=== PATIENT | male | born 1970 | race Caucasian/White ===

== ENCOUNTER 2018-07-13 10:38 | Emergency (ER) | payer OTHER, SELFPAY ==
[2018-07-13] VITALS (8 sets, daily range): BP systolic 108–123; BP diastolic 64–79; PULSE 70–97; RESP 13–21; TEMP 36.4–36.9; O2SAT 96–99; BMI 31.2
--- NOTE | 2018-07-13 11:12 | DI.RAD.S_ITS ---
PROCEDURE: XR CHEST 1V INDICATIONS: Chest pain. TECHNIQUE: One view of the chest was acquired. COMPARISON: [facility], , CHEST 1 VIEW, 07/19/2008, 2:20. FINDINGS: Surgical changes and devices: None. Lungs and pleura: No pleural effusions or pneumothorax. Lungs are clear. Mediastinum: Mediastinal contours appear normal. Heart size is normal. Bones and chest wall: No suspicious bony lesions. Overlying soft tissues appear unremarkable. IMPRESSION: No acute cardiopulmonary disease. Dictated by: Fernando Lane M.D. on 07/13/2018 at 11:41 Approved by: Fernando Lane M.D. on 07/13/2018 at 11:43
[2018-07-13 11:21] LABS: Add Manual Diff / Slide Review NO; Basophils Percent Auto 0.8 % (0-2); Eosinophils Percent Auto 1.7 % (2-4); Hemoglobin 16.5 g/dL (13.5-17.5); Lymphocytes Percent Auto 23.4 % (25-40); Mean Corpuscular Hemoglobin 31.7 PG (26-34); Mean Corpuscular Volume 90.4 fL (80-100); Monocytes Percent Auto 7.8 % (3-14); Neutrophils Absolute Auto 3800 /uL (3000-5900); Neutrophils Percent Auto 66.3 % (50-75); Platelet Count 243 X10^3/uL (150-400); Red Cell Distribution Width 13.2 % (11.6-14.8); White Blood Cell Count 5.8 X10^3/uL (4.5-11.0)
[2018-07-13 11:22] LABS: INR 1.1 (0.9-1.3); Prothrombin Time 11.3 SECONDS (10.1-12.7)
--- NOTE | 2018-07-13 11:23 | ED.CHESTPAIN ---
HPI - Chest Pain General Chief Complaint: Chest Pain Stated Complaint: CHEST PAINS Time Seen by Provider: 07/13/18 11:02 Source: patient Mode of arrival: ambulatory Limitations: no limitations History of Present Illness HPI narrative: Patient is a 48-year-old male who presents with left-sided chest pain ongoing for about the last 12 days. It has been constant in nature. It not worse with movement or breathing. It is nonradiating. He denies any shortness of breath or heart palpitations. He was traveling and driving to [place] he only stopped for gas. No history of blood clots no known coronary artery disease. He was at his primary care physician's office today who sent him to the ED for further evaluation. MD complaint: chest pain Related Data Home Medications Medication Instructions Recorded Confirmed ASPIRIN (Aspirin Low Dose) 81 mg PO #0 07/19/08 atorvastatin [Lipitor] #0 04/13/17 hydrochlorothiazide #0 04/13/17 lisinopril #0 04/13/17 omeprazole 40 mg PO QDAY #0 05/10/17 Allergies Allergy/AdvReac Type Severity Reaction Status Date / Time No Known Drug Allergies Allergy Verified 07/13/18 10:54 Review of Systems Review of Systems GENERAL: Denies chills, fatigue, malaise, fever, sweats, travel HEENT: Denies sinus pain, ear pain, sore throat, difficulty swallowing, neck pain RESPIRATORY: Denies dyspnea, cough, wheezing, hemoptysis, sputum. CARDIOVASCULAR: See HPI GASTROINTESTINAL: Denies nausea, vomiting, abdominal pain, diarrhea, constipation, melena. : Denies dysuria, frequency, incontinence, hematuria, urinary retention, flank pain. MUSCULOSKELETAL: Denies weakness, joint pain, or bony pain SKIN: No rash, no erythema, no pruritus NEUROLOGIC: Denies weakness, dizziness, headache, numbness, change in speech, confusion PSYCHIATRIC: No concerning psychosocial issues. 12 point review of systems is negative except for those stated above and HPI [facility] Medical History Hyperlipidemia (Acute) Comment: No family history of coronary artery disease Exam Initial Vital Signs Initial Vital Signs: Vital Signs Temperature 98.5 F 07/13/18 10:54 Pulse Rate 97 H 07/13/18 10:54 Respiratory Rate 18 07/13/18 10:54 Blood Pressure 115/76 07/13/18 10:54 Pulse Oximetry 97 07/13/18 10:54 GENERAL: Well-appearing, well-nourished and in no acute distress. HEENT: Head atraumatic,EOMI, pupils reactive CARDIOVASCULAR: Regular rate and rhythm without murmurs, rubs or gallops. RESPIRATORY: Breath sounds equal bilaterally, no wheezes rales or rhonchi. ABDOMEN: Soft, nontender. Normoactive bowel sounds all 4 quadrants. No guarding or rebound. EXTREMITIES: Normal range of motion, no clubbing or edema. Neurovascularly intact NEUROLOGICAL: Alert and oriented x4.Normal gait and speech. Cranial nerves II through XII grossly intact. SKIN: Warm, dry, no laceration, no petechiae, no rashes or lesions. Scores HEART Score Heart Score history: Slightly Suspicious Heart Score EKG: Normal Heart Score Age: 45-64 years old Heart Score risk factors: 1-2 risk factors Heart Score troponin: < or = to normal limit Heart Score Total: 2 PERC Score Age greater than or equal to 50 years: Yes Heart rate greater than or equal to 100 bpm: No Room Air O2 Sat less than 95%: No Unilateral leg swelling: No Recent trauma or surgery: No Hemoptysis: No Prior PE or DVT: No Hormone Use: No Total PERC Score: 1 Wells' Criteria for PE Clinical signs and symptoms of PE: Yes PE is #1 Dx or equally likely: No Heart rate > 100: No Immobilization at least 3 days or surg in previous 4 weeks: No History of PE or DVT: No Hemoptysis: No Malignancy w/Treatment within 6 months or palliative: No Wells' PE Score total: 3 Course Orders Ordered: Discontinued Medications Aspirin (Aspirin Chew) 324 mg PO NOW ONE Stop: 07/13/18 11:13 Last Admin: 07/13/18 11:26 Dose: 324 mg Sodium Chloride (Normal Saline 0.9%) 1,000 mls @ 150 mls/hr IV CONT UBALDO Sodium Chloride (Normal Saline 0.9%) 1,000 mls @ 150 mls/hr IV CONT UBALDO Ketorolac Tromethamine (Toradol) 30 mg IV NOW ONE Stop: 07/13/18 13:48 Last Admin: 07/13/18 13:48 Dose: 30 mg Nitroglycerin (Nitrostat) 0.4 mg SL NOW ONE Stop: 07/13/18 12:53 Last Admin: 07/13/18 13:00 Dose: 0.4 mg Vital Signs - 8 hr 07/13/18 10:54 Temperature 98.5 F Pulse Rate 97 H Respiratory Rate 18 Blood Pressure 115/76 Pulse Oximetry 97 MDM - Chest Pain Lab Data Attestation: I reviewed the patient's lab results. Result diagrams: 07/13/18 11:00 07/13/18 11:00 Lab Results 07/13/18 07/13/18 07/13/18 Range/Units 11:00 11:00 11:00 WBC 5.8 (4.5-11.0) X10^3/uL RBC 5.20 (4.5-5.9) X10^6/uL Hgb 16.5 (13.5-17.5) g/dL Hct 47.0 (41-53) % MCV 90.4 (80-100) fL MCH 31.7 (26-34) PG MCHC 35.0 (30-36) % RDW 13.2 (11.6-14.8) % Plt Count 243 (150-400) X10^3/uL Neut % (Auto) 66.3 (50-75) % Lymph % (Auto) 23.4 L (25-40) % Gentry % (Auto) 7.8 (3-14) % Eos % (Auto) 1.7 L (2-4) % Baso % (Auto) 0.8 (0-2) % Neut # (Auto) 3800 (9818-4720) /uL PT 11.3 (10.1-12.7) SECONDS INR 1.1 (0.9-1.3) APTT 33 (26.4-36.2) SECONDS D-Dimer (<230) ng/mL Sodium 139 (137-145) mmol/L Potassium 3.8 (3.4-5.1) mmol/L Chloride 101 (98-107) mmol/L Carbon Dioxide 28 (22-32) mmol/L BUN 28 H (9-20) mg/dL Creatinine 0.70 (0.66-1.25) mg/dL Estimated GFR > 60.0 (>60) mL/min BUN/Creatinine Ratio 40.0 H (6-22) Glucose 145 H (70-100) mg/dL Calcium 9.7 (8.4-10.2) mg/dL Total Bilirubin 0.6 (0.2-1.3) mg/dL AST 34 (17-59) IU/L ALT 54 (21-72) IU/L Alkaline Phosphatase 79 (38-126) U/L Total Creatine Kinase 140 (55-170) U/L CK-MB (CK-2) 1.35 (<2.37) ng/mL CK-MB (CK-2) Rel Index 1.0 L (1.5-5.0) % Troponin I < 0.012 (0.01-0.034) ng/mL Total Protein 7.5 (6.3-8.2) g/dL Albumin 4.4 (3.5-5.0) g/dL Globulin 3.1 (1.7-4.1) g/dL Albumin/Globulin Ratio 1.4 (1.0-2.8) Lipase 111 (23-300) U/L 07/13/18 Range/Units 11:00 WBC (4.5-11.0) X10^3/uL RBC (4.5-5.9) X10^6/uL Hgb (13.5-17.5) g/dL Hct (41-53) % MCV (80-100) fL MCH (26-34) PG MCHC (30-36) % RDW (11.6-14.8) % Plt Count (150-400) X10^3/uL Neut % (Auto) (50-75) % Lymph % (Auto) (25-40) % Gentry % (Auto) (3-14) % Eos % (Auto) (2-4) % Baso % (Auto) (0-2) % Neut # (Auto) (9034-3663) /uL PT (10.1-12.7) SECONDS INR (0.9-1.3) APTT (26.4-36.2) SECONDS D-Dimer < 200 (<230) ng/mL Sodium (137-145) mmol/L Potassium (3.4-5.1) mmol/L Chloride (98-107) mmol/L Carbon Dioxide (22-32) mmol/L BUN (9-20) mg/dL Creatinine (0.66-1.25) mg/dL Estimated GFR (>60) mL/min BUN/Creatinine Ratio (6-22) Glucose (70-100) mg/dL Calcium (8.4-10.2) mg/dL Total Bilirubin (0.2-1.3) mg/dL AST (17-59) IU/L ALT (21-72) IU/L Alkaline Phosphatase (38-126) U/L Total Creatine Kinase (55-170) U/L CK-MB (CK-2) (<2.37) ng/mL CK-MB (CK-2) Rel Index (1.5-5.0) % Troponin I (0.01-0.034) ng/mL Total Protein (6.3-8.2) g/dL Albumin (3.5-5.0) g/dL Globulin (1.7-4.1) g/dL Albumin/Globulin Ratio (1.0-2.8) Lipase (23-300) U/L Imaging Data Chest x-ray: Radiologist's impression: PROCEDURE: XR CHEST 1V INDICATIONS: Chest pain. TECHNIQUE: One view of the chest was acquired. COMPARISON: [facility], CHEST 1 VIEW, 07/19/2008, 2:20. FINDINGS: Surgical changes and devices: None. Lungs and pleura: No pleural effusions or pneumothorax. Lungs are clear. Mediastinum: Mediastinal contours appear normal. Heart size is normal. Bones and chest wall: No suspicious bony lesions. Overlying soft tissues appear unremarkable. IMPRESSION: No acute cardiopulmonary disease. Dictated by: Fernando Lane M.D. on 07/13/2018 at 11:41 ECG Data Attestation: I personally reviewed and interpreted this ECG as follows: Prior ECG tracings: not available for review Interpretation: Normal sinus rhythm rate [address] changes no T-wave inversions no priors to compare MDM Narrative Medical decision making narrative: patient signs and symptoms not completely consistent with cardiac pain. It has been ongoing for a number of weeks. He did travel in a car long distance however his D-dimer is negative. I do not believe this to be a PE. He does have some hypertension as his only risk factor. I recommended outpatient workup. EKG troponin x-ray are reassuring. I discussed all findings with the patient And spouse, Education has been performed regarding treatment plan, diagnosis, warning signs and symptoms and all concerns have been addressed. Verbally agree with and understood all of the above. Discharge Plan Departure Patient Disposition: Home Clinical Impression: Atypical chest pain Discharge Date/Time: 07/13/18 14:26 Interventions: ED Discharge Assessment Last Done: 07/13/18 14:26 Instructions: DI for Atypical Chest Pain Activity Restrictions/Additional Instructions: *You have been diagnosed with atypical chest *What to do: Blood work chest x-ray and EKG are reassuring. Still may require further cardiac evaluation please see your doctor about this *Continue to take medications as directed -81 mg aspirin daily *Follow up with your primary care provider in 2-3 days *Return to ER if you should have worsening chest pain, shortness of breath, heart palpitations or any new, worsening or concerning symptoms Prescriptions: No Action ASPIRIN (Aspirin Low Dose) 81 mg PO Qty: 0 RF: 0 lisinopril 20 MG tablet Qty: 0 RF: 0 atorvastatin [Lipitor] 40 MG tablet Qty: 0 RF: 0 hydrochlorothiazide 25 MG tablet Qty: 0 RF: 0 omeprazole 40 MG capsule,delayed release(DR/EC) 40 mg PO QDAY Qty: 0 RF: 0
[2018-07-13 11:25] LABS: PTT Partial Thromboplastin Tim 33 SECONDS (26.4-36.2)
[2018-07-13] MEDS: ASPIRIN 81 MG TAB 324 MG PO (11:26)
[2018-07-13 11:28] LABS: Alanine Aminotransferase 54 IU/L (21-72); Albumin 4.4 g/dL (3.5-5.0); Albumin Globulin Ratio 1.4 (1.0-2.8); Alkaline Phosphatase 79 U/L (38-126); Aspartate Aminotransferase 34 IU/L (17-59); Bilirubin Total 0.6 mg/dL (0.2-1.3); Blood Urea Nitrogen 28 mg/dL (9-20); Calcium 9.7 mg/dL (8.4-10.2); Carbon Dioxide 28 mmol/L (22-32); Chloride 101 mmol/L (98-107); Creatine Kinase 140 U/L (55-170); Estimated Glomerular Filt Rate > 60.0 mL/min (>60); Globulin 3.1 g/dL (1.7-4.1); Glucose 145 mg/dL (70-100); HEMOLYSIS < 15 (0-50); Lipase 111 U/L (23-300); Potassium 3.8 mmol/L (3.4-5.1); Sodium 139 mmol/L (137-145); Total Protein 7.5 g/dL (6.3-8.2)
[2018-07-13 11:41] LABS: Troponin I < 0.012 ng/mL (0.01-0.034)
[2018-07-13 11:43] LABS: Creatine Kinase MB 1.35 ng/mL (<2.37)
[2018-07-13 12:24] LABS: D Dimer < 200 ng/mL (<230)
[2018-07-13] MEDS: NITROGLYCERIN 0.4 MG SL TAB SL (13:00)
--- NOTE | 2018-07-13 13:36 | PC.NURSE ---
No change in pt. CP after NTG. now c/o CADENA
[2018-07-13] MEDS: KETOROLAC 60 MG/2 ML VIAL 30 MG IV (13:48)
== END 2018-07-13 14:26 | disposition home or self-care (01) ==
PROVIDERS: Emergency Provider Emergency Medicine
DX: R07.89 Other chest pain (principal)
CPT/HCPCS: 36591; 71045; 80053; 81003; 82550; 82553; 83690; 84484; 85025; 85379; 85610; 85730; 93005; 93010; 96374; 99283; 99285; J1885